=== PATIENT | female | born 1975 | race Caucasian/White ===

== ENCOUNTER → 2016-07-30 | Outpatient (CLI) | payer BC ==
[~2016-07-30] MED LIST: methylPREDNISolone 80 MG/ML (DEPO MEDROL) VIAL IM ONE
--- NOTE | 2016-08-03 12:21 | PAIN MANAGEMENT ---
Date of note: 07/30/2016 PROCEDURE: C6-C7 epidural steroid injection under fluoroscopic guidance. Total fluoroscopic time 16 sec. This is a 41-year-old female patient under the care of Dr. Solorio. Anesthesia was consulted for the purposes of cervical epidural steroid injection secondary to disc bulge with cervical radiculopathy and stenosis. The patient comes in today complaining of pain throughout her neck. It is worse on the right side and follows down the arm following C6-C7 dermatome levels. This correlates with MRI results which shows disc bulge and a bit of narrowing at C6-C7. Based on presentation and MRI results we decided to proceed forward with C6-C7 epidural steroid injection. The patient was taken to the PACU for use of fluoroscopic guidance for needle tip placement. She was placed in the left lateral decubitus position. Orders for procedure verified. Patient denies any bleeding tendencies. After informed consent obtained, the patient was positioned for the cervical epidural steroid injection. The area was prepped and draped using aseptic technique. The skin and overlying tissues were localized with 3 mL of 1% Preservative-Free lidocaine using a 25-gauge needle. A 20-gauge Tuohy needle was advanced, using "loss of resistance" technique, to the epidural space. No blood, cerebral spinal fluid, pain, or paresthesia noted on entry of the epidural space. A 1 mL solution of Depo-Medrol 80 mg was injected slowly without mass volume effect. The needle was then removed. The patient was returned to the sitting position where she remained for approximately 10 minutes. She then release with vital signs stable and faculties intact. She was escorted to the door per [employer]. She is asked to follow up with me via my cellphone in 3 days. She states she understands these discharge instructions. I will follow her from there.
== END ==
LOC: PMC 13:04
PROVIDERS: ATTEND Family Medicine
DX: M50.20 Other cervical disc displacement, unspecified cervical region (principal); M48.02 Spinal stenosis, cervical region; M54.12 Radiculopathy, cervical region